=== PATIENT | male | born 1970 | race African-American/Black ===

== ENCOUNTER 2017-03-12 18:36 | Emergency (ER) | payer OTHER ==
[~2017-03-12 18:36] MED LIST: MOTRIN 600 MG600 MG PO
--- NOTE | 2017-03-12 19:58 | ED HAND/WRIST INJURY COMPLAINT ---
History of Present Illness General Chief Complaint: Hand or Wrist Injury Stated Complaint: PT RT HAND FIRST FINGER HAS A CUT Source: patient, old records Exam Limitations: no limitations Vital Signs & Intake/Output Vital Signs & Intake/Output Vital Signs Date Time Temp Pulse Resp B/P B/P Pulse O2 O2 Flow FiO2 Mean Ox Delivery Rate 03/12 2105 98.6 88 19 128/76 98 Room Air 03/12 1846 98.7 22 132/80 98 Room Air Allergies Coded Allergies: NO KNOWN ALLERGIES (10/09/14) Reconcile Medications Ibuprofen (Motrin 600 MG Tab) 600 MG TABLET 1 TAB PO TID PAIN/INFLAMMATION with food Triage Note: PER PT CUT RT INDEX FINGER AT WORK YESTERDAY, CONTINUES TO BLEED, LAST TETANUS 3 YRS AGO. Triage Nurses Notes Reviewed? yes Occurred: 30 hours ago Duration: hour(s):, continues in ED, intermittent Timing: recent history Injury Environment: work Severity: moderate Pain/Injury Location: Right: 2nd finger. Context: laceration Method of Injury: laceration Modifying Factors: Worsens With: movement. Associated Symptoms: GCS 15 since HPI: Greater than 30 hours prior to admission patient cut his right index finger on a bicycle disc brake passing through the nail. It has been bleeding intermittently when he strikes it against an object. He denies fever chills nausea vomiting diarrhea abdominal pain chest pain shortness breath headache dysuria rash. Past History Travel History Traveled to [place] past 21 day No Medical History Any Pertinent Medical History? see below for history Neurological: NONE EENT: NONE Cardiovascular: HEART MURMUR Respiratory: NONE Gastrointestinal: NONE Hepatic: NONE Renal: NONE Musculoskeletal: NONE Psychiatric: NONE Endocrine: NONE Surgical History Surgical History: non-contributory Psychosocial History What is your primary language Nigerian Tobacco Use: Current Daily Use Daily Tobacco Use Amount/Type: =< 4 Cigarettes daily Family History Hx Contributory? No Review of Systems Review of Systems Constitutional: Reports: no symptoms. EENTM: Reports: no symptoms. Respiratory: Reports: no symptoms. Cardiovascular: Reports: no symptoms. GI: Reports: no symptoms. Genitourinary: Reports: no symptoms. Musculoskeletal: Reports: no symptoms. Skin: Reports: see HPI. Neurological/Psychological: Reports: no symptoms. Hematologic/Endocrine: Reports: no symptoms. Immunologic/Allergic: Reports: no symptoms. All Other Systems: Reviewed and Negative Physical Exam Physical Exam General Appearance: well developed/nourished, alert, awake, anxious, mild distress Head: atraumatic, normal appearance Eyes: Bilateral: normal appearance, PERRL, EOMI. Ears, Nose, Throat: normal pharynx, normal ENT inspection, hearing grossly normal Neck: normal inspection, supple Cardiovascular/Respiratory: normal breath sounds, regular rate/rhythm Back: normal inspection, normal range of motion Shoulder Left: normal range of motion, normal inspection Shoulder Right: normal range of motion, normal inspection Elbow Left: normal range of motion, normal inspection Elbow Right: normal range of motion, normal inspection Forearm Left: normal range of motion, normal inspection Forearm Right: normal range of motion, normal inspection Wrist Left: normal range of motion, normal inspection Wrist Right: normal range of motion, normal inspection Hand Left: normal inspection, normal range of motion Hand Right: nail injury, evidence of injury, 2nd finger, avulsion laceration to right medial aspect of index finger and nailbed Reflexes: 2+: bicep (R), bicep (L). Neurologic/Tendon: normal sensation, normal motor functions, normal tendon functions Skin: intact, normal color, warm/dry Lymphatic: no anterior cervical hannah Diagram Hands Back 1) incomplete avulsion laceration Progress Differential Diagnosis: laceration nailbed injury Plan of Care: Discussed nail repair and digital block. Patient prefers nail to be removed with wound repair. Patient then declined repair, splints to be used to protect wound, follow up with hand specialist. Departure Departure Time of Disposition: 2050 Disposition: HOME OR SELF CARE Condition: Stable Clinical Impression Primary Impression: Laceration of right index finger Referrals: LEONEL OCONNELL,MOOKIE Myers Call for plastic surgery / hand follow up. Additional Instructions: Use splints for wound protection Departure Forms: Customer Survey General Discharge Information Procedures Splinting Location: right index Manual Alignment Performed: No Pre-Made Type: metal Splint: finger Splint Applied By: splint applied by other Pre-Proc Neuro Vasc Exam: normal Post-Proc Neuro Vasc Exam: normal
[2017-03-12 21:05] VITALS: BP 128/76
== END 2017-03-12 21:07 ==
LOC: ERH 18:36
DX: S61.310A Laceration without foreign body of right index finger with damage to nail, initial encounter (principal); W45.8XXA Other foreign body or object entering through skin, initial encounter; Y93.89 Activity, other specified; Y92.9 Unspecified place or not applicable